=== PATIENT | male | born 1945 | race Caucasian/White ===

== ENCOUNTER 2021-07-21 13:22 | Outpatient (CLI) | payer OTHER, SELFPAY ==
[2021-07-21 14:10] LABS: Basophils # 0.1 10^3/uL (0.0-0.1); Basophils % 0.8 %; Eosinophils # 0.1 10^3/uL (0.0-0.8); Eosinophils % 1.8 %; Hemoglobin 14.5 g/dL (11.7-16.6); Lymphocytes # 2.1 10^3/uL (0.8-4.8); Lymphocytes % 30.1 %; Mean Corpuscular HGB Conc 33.7 g/dL (30.0-36.0); Mean Corpuscular Hemoglobin 30.1 pg (28.0-34.0); Mean Corpuscular Volume 89.2 fl (80-94); Mean Platelet Volume 10.8 fL (7.4-10.4); Monocytes # 0.4 10^3/uL (0.2-0.9); Monocytes % 6.2 %; Neutrophils # 4.31 10^3/uL (1.8-7.7); Neutrophils % 60.8 %; Nucleated Red Blood Cells % 0 %; Platelet Count 193 10^3/cmm (130-400); Red Blood Count 4.82 10^6/uL (4.1-5.3); Red Cell Distribution Width 12.5 % (12.1-15.1); White Blood Count 7.1 10^3/uL (4.0-10.0)
[2021-07-21 15:32] LABS: Anion Gap 14.3 (5-19); Blood Urea Nitrogen 18 mg/dL (8-23); Calcium 9.4 mg/dL (8.5-10.5); Carbon Dioxide 26 mmol/L (22-29); Chloride 99 mmol/L (98-107); Glucose 354 mg/dL (65-115); NT Pro B Type Natriuretic Pept 42 pg/mL (0-125); Osmolality Calculated 296 mOsm/kg (285-295); Potassium 4.3 mmol/L (3.5-5.1); Sodium 135 mmol/L (136-145); Thyroid Stimulating Hormone 1.58 uIU/mL (0.27-4.20)
[2021-07-22 12:53] LABS: Anti-Double Strand DNA AB 2 IU/mL; Jo-1 Antibody <1.0 NEG AI (<1.0 NEG); SM/RNP Antibodies <1.0 NEG AI (<1.0 NEG); SS-B/LA IGG <1.0 NEG AI (<1.0 NEG); Scleroderma Ab(Scl-70) Ab <1.0 NEG AI (<1.0 NEG); Ss-A/Ro Igg <1.0 NEG AI (<1.0 NEG)
[2021-07-22 14:53] LABS: Alternaria Alternata (M6) Ige <0.10 kU/L; Alternaria Class 0; Bermuda Class 0; Bermuda Grass (G2) Ige <0.10 kU/L; Cat Dander (E1) Ige <0.10 kU/L; Cat Dander Class 0; Common Ragweed (Short) (W1) Ig <0.10 kU/L; D. Farinae Class 0; Dermatophagoides Class 0; Dermatophagoides Farinae (D2) <0.10 kU/L; Dermatophagoides Pteronyssinus <0.10 kU/L; Dog Dander (E5) Ige <0.10 kU/L; Dog Dander Class 0; Elm (T8) Ige <0.10 kU/L; Elm Class 0; English Plantain (W9) Ige <0.10 kU/L; English Plantain Class 0; House Dust (Greer) (H1) Ige <0.10 kU/L; House Dust (Hollister- Stier) <0.10 kU/L; House Dust Class 0; Immunoglobulin E 75 kU/L (<OR=114); Immunoglobulin E 77 kU/L (<OR=114); Johnson Grass (G10) Ige <0.10 kU/L; Johnson Grass Cl 0; June Grass Class 0; June Grass(Kentucky Blue) (G8) <0.10 kU/L; Lamb'S Quarters (Goose Foot) <0.10 kU/L; Lamb'S Quarters Class 0; Maple (Box Elder) (T1) Ige <0.10 kU/L; Maple Class 0; Meadow Fescue (G4) Ige <0.10 kU/L; Meadow Fescue Class 0; Mucor Racemosus Class 0; Oak (T7) Ige <0.10 kU/L; Oak Class 0; Orchard Grass (Cocksfoot) (G3) <0.10 kU/L; Penicillium Class 0; Penicillium Notatum (M1) Ige <0.10 kU/L; Perennial Rye Grass (G5) Ige <0.10 kU/L; Perennial Rye Grass Class 0; Ragweeed Class 0; Rough Marsh Elder (W16) Ige <0.10 kU/L; Rough Marsh Elder Class 0; Sweet Vernal Class 0; Sweet Vernal Grass (G1) Ige <0.10 kU/L; Timothy Grass (G6) Ige <0.10 kU/L; Timothy Grass Class 0
[2021-07-23 14:43] LABS: Aspergillus Fumigatus, Igg Ab, 24.7 mg/L (<=102)
== END 2021-07-21 13:23 | disposition home or self-care (01) ==
LOC: LAB 13:27
PROVIDERS: PCP Emergency Medicine Emergency Medical Services; Referring Provider Internal Medicine Cardiovascular Disease; Visit Provider Internal Medicine Pulmonary Disease
DX: R06.00 Dyspnea, unspecified (principal); R06.02 Shortness of breath; I50.33 Acute on chronic diastolic (congestive) heart failure; J84.9 Interstitial pulmonary disease, unspecified; N18.9 Chronic kidney disease, unspecified; R07.89 Other chest pain
CPT/HCPCS: 80048; 82785; 83880; 84443; 85025; 86003; 86225; 86235

== ENCOUNTER 2021-09-07 08:19 | Outpatient (CLI) | payer OTHER, SELFPAY ==
--- NOTE | 2021-09-07 08:38 | USCV_ITS ---
Renner Galen Age: 76 Gender: M : 1945 Exam Date: 09/07/2021 09:03 Ordering Phys: Asay Terrell MD ([email or web address]) Technologist: Rafael Rivera Exam Location: [facility] Indication: dyspnea, short of breath, chest pain BP: 130 / 78 HR: 56 Rhythm: Sinus Technical Quality: Adequate MEASUREMENTS (Male / Female) Normal Values 2D ECHO LV Diastolic Diameter PLAX 3.9 cm 4.2 - 5.9 / 3.9 - 5.3 cm LV Systolic Diameter PLAX 2.5 cm IVS Diastolic Thickness 0.9 cm 0.6 - 1.0 / 0.6 - 0.9 cm IVS Systolic Thickness 1.2 cm LVPW Diastolic Thickness 1.0 cm 0.6 - 1.0 / 0.6 - 0.9 cm LVPW Systolic Thickness 1.5 cm LVOT Diameter 2.0 cm LV Ejection Fraction 2D Teich 65.9 % LV Ejection Fraction MOD 2C 69.5 % LV Ejection Fraction 2C AL 69.7 % LA Diameter 3.1 cm LA Width 3.2 cm LA Height 4.5 cm RA Width 3.4 cm RA Height 4.0 cm Aorta at Sinotubular Diameter 2.5 cm M-MODE Aortic Annulus Diameter 2.8 cm LA Ao Ratio MM 1.1 MV E Point Septal Separation 0.3 cm DOPPLER AV Peak Velocity 131.0 cm/s LVOT Peak Velocity 115.0 cm/s AV Area Cont Eq vti 2.4 cm squared AV Area Cont Eq pk 2.8 cm squared MV Area PHT 5.0 cm squared Mitral E to A Ratio 0.8 MV E' Velocity 38.5 cm/s Mitral E to MV E' Ratio 8.6 Mitral E to LV E' Lateral Ratio 8.9 Mitral E to LV E' Septal Ratio 8.3 TR Peak Velocity 294.5 cm/s TR Peak Gradient 34.7 mmHg TR Mean Velocity 226.0 cm/s TR Mean Gradient 22.9 mmHg TR Velocity Time Integral 87.6 cm RV Acceleration Time 0.1 s RV Ejection Time 0.3 s RV AcT/ET 0.3 FINDINGS Left Ventricle Normal left ventricular size, systolic function and wall thickness, with no regional wall motion abnormalities. Left ventricular ejection fraction is estimated at 70 %. Grade I diastolic dysfunction (abnormal relaxation filling pattern), normal to mildly elevated filling pressures. Right Ventricle Normal right ventricular size and systolic function. Right ventricular systolic pressure 36 mmHg. Right Atrium Normal right atrial size. Left Atrium Normal left atrial size. Mitral Valve Structurally normal mitral valve. No mitral valve stenosis. Trace mitral valve regurgitation. Aortic Valve Aortic valve not well visualized. No aortic valve stenosis. No aortic valve regurgitation. Tricuspid Valve Structurally normal tricuspid valve. Trace tricuspid valve regurgitation. Pulmonic Valve Pulmonic valve not well visualized. No pulmonary valve stenosis. No pulmonary valve regurgitation. Pericardium No pericardial effusion. Aorta Normal-sized aortic root and proximal ascending aorta. CONCLUSIONS 1. Normal left ventricular size, systolic function and wall thickness, with no regional wall motion abnormalities. Left ventricular ejection fraction is estimated at 70 %. Grade I diastolic dysfunction (abnormal relaxation filling pattern), normal to mildly elevated filling pressures. 2. Normal right ventricular size and systolic function. 3. Pulmonary artery pressure estimated at 36 mmHg. 4. No significant valvular abnormality. 5. No prior similar studies to compare. Mayte Cleary MD (Electronically Signed) Final Date: 12 September 2021 16:53 S
== END 2021-09-07 08:20 | disposition home or self-care (01) ==
PROVIDERS: PCP Emergency Medicine Emergency Medical Services; Visit Provider Internal Medicine Cardiovascular Disease
DX: R06.00 Dyspnea, unspecified (principal); R07.89 Other chest pain; R06.02 Shortness of breath
CPT/HCPCS: 93306

== ENCOUNTER 2021-10-12 12:42 | Outpatient (CLI) | payer OTHER, SELFPAY ==
--- NOTE | 2021-10-12 13:01 | CT_ITS ---
WS: [id number] CT CHEST WITHOUT INTRAVENOUS CONTRAST HISTORY: dyspnea TECHNIQUE: Contiguous 5 mm axial imaging performed on the thorax. Coronal and sagittal reformats are submitted. All CT scans at [facility] use at least one of these dose optimization techniques: automated exposure control; mA and/or kV adjustment per patient size (includes targeted exams where dose is matched to clinical indication); or iterative reconstruction. CONTRAST: None DLP: 819.80 mGy.cm COMPARISON: None available. Lungs and central airway: Mildly expanded lungs. Small micronodules are noted in the RIGHT upper lobe . There is a benign granuloma at the RIGHT lung base. Very small linear scar at the LEFT lung base. N o pneumonia. No significant bronchiectasis or bronchial wall thickening. No endobronchial lesions. Pleura: Normal. No pleural effusion. Heart and pericardium: Normal size heart with no pericardial effusion. Mediastinum and shantal: Small mediastinal and hilar lymph nodes. Healed granulomatous disease and calci fied lymph nodes at the RIGHT hilum. Vessels: Mild atherosclerosis thoracic aorta. Normal size pulmonary artery. Chest wall and lower neck: No soft tissue masses. Upper abdomen: Small hiatal hernia. Numerous low-attenuation lesions within the liver. The largest ad jacent to the falciform ligament measures 2.9 x 1.8 cm. These are probably cysts. Cannot be further e valuated without IV contrast. No adrenal mass. Spleen is top normal size at 12.6 cm. There are a few splenic granulomas. Osseous structures: No destructive process. CT/CT chest wo con [id number] IMPRESSION: 1. No pneumonia or pulmonary mass. 2. No adenopathy. 3. Splenic and hepatic granulomata. 4. Low-attenuation lesions within the liver. These are probably cysts. To conf irm hepatic cyst consider ultrasound evaluation.
== END 2021-10-12 12:43 | disposition home or self-care (01) ==
LOC: RAD 12:45
PROVIDERS: PCP Emergency Medicine Emergency Medical Services; Visit Provider Internal Medicine Pulmonary Disease
DX: R06.00 Dyspnea, unspecified (principal); K75.3 Granulomatous hepatitis, not elsewhere classified
CPT/HCPCS: 71250

== ENCOUNTER 2021-10-20 12:34 | Outpatient (CLI) | payer OTHER, SELFPAY ==
--- NOTE | 2021-10-20 13:26 | PFTS_ITS ---
Date of Study:10/20/21 Date of Dictation: MECHANICS: Forced vital capacity (FVC) is normal. Forced expiratory volume in one second (FEV1) is normal. FEV1/FVC is normal. FLOW VOLUME LOOP: No peak expiratory flow during the forced expiratory maneuver. There are clear signs of hesitation. LUNG VOLUMES: Total lung capacity (TLC) is reduced. Residual volume (RV) is reduced. DIFFUSING CAPACITY FOR CARBON MONOXIDE: Erroneously measured. INTERPRETATION: The prebronchodilator spirometry is normal. No postbronchodilator spirometry was performed. There is clear hesitation in the flow-volume loop during the peak expiratory flow maneuver. This could affect the result of the spirometry. Lung volumes are consistent with restrictive lung disease. Gas exchange (DLCO) is not being measured appropriately. MTDD
== END 2021-10-20 12:35 | disposition home or self-care (01) ==
LOC: RT 12:35
PROVIDERS: PCP Emergency Medicine Emergency Medical Services; Visit Provider Internal Medicine Pulmonary Disease
DX: R06.00 Dyspnea, unspecified (principal)
CPT/HCPCS: 94010; 94618; 94726; 94729

== ENCOUNTER → 2021-10-22 12:42 | Outpatient (BNVA) | payer OTHER, SELFPAY | PROVIDERS: PCP Emergency Medicine Emergency Medical Services; Visit Provider Internal Medicine Cardiovascular Disease | DX: R07.89 Other chest pain (principal); I10 Essential (primary) hypertension; E78.2 Mixed hyperlipidemia; E11.8 Type 2 diabetes mellitus with unspecified complications; Z79.4 Long term (current) use of insulin; G47.30 Sleep apnea, unspecified; Z87.891 Personal history of nicotine dependence | CPT/HCPCS: 99214 ==

== ENCOUNTER 2021-11-17 10:44 | Outpatient (CLI) | payer OTHER, SELFPAY ==
--- NOTE | 2021-11-17 11:00 | USCV_ITS ---
Renner Galen Age: 76 Gender: M : 1945 Exam Date: 11/17/2021 11:05 Ordering Phys: Asya Terrell MD ([email or web address]) Technologist: Will Ramos Exam Location: [facility] [place] Indication: ?aaa HISTORY: Diameter (cm) AP x Transverse x Length Velocity (cm/s) Waveform Prox Aorta: 1.90 x 2.08 x 55.30 Mid Aorta: 1.83 x 2.17 x 74.10 Distal Aorta: 1.95 x 1.97 x 64.50 Right Iliac Prox: 1.41 x 1.50 x 90.70 Left Iliac Prox: 1.16 x 1.47 x 84.50 Stent Prox Landing x x Aneurysmal Sac Max x x Lt Lat Sac Dim Rt Lat Sac Dim Stent Dist Landing x x Right Iliac Stent x x Left Iliac Stent x x Right Renal Art Left Renal Art FINDINGS: Normal abdominal aortic dimensions Slightly dilated proximal common iliac arteries bilaterally CONCLUSIONS 1. No evidence of any abdominal aortic aneurysm 2. Slightly ectatic proximal common iliac arteries 3. No evidence of stenosis in the proximal common iliac artery or in the abdominal aorta 4. The aortic and iliac artery dimensions are as mentioned above Dr Asya Terrell MD [facility] (Electronically Signed) Final Date: 17 Nov 2021 16:16 S
== END 2021-11-17 10:45 | disposition home or self-care (01) ==
LOC: RAD 10:45
PROVIDERS: PCP Emergency Medicine Emergency Medical Services; Visit Provider Internal Medicine Cardiovascular Disease
DX: R07.9 Chest pain, unspecified (principal); I71.4 Abdominal aortic aneurysm, without rupture
CPT/HCPCS: 93978

== ENCOUNTER 2021-12-02 09:54 | Outpatient (CLI) | payer OTHER, SELFPAY ==
[2021-12-02 10:22] VITALS: BMI 32.8
--- NOTE | 2021-12-02 10:22 | ECG_ITS ---
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 Interpretive Statements NAME OF STUDY: LEXISCAN SESTAMIBI STRESS TEST INDICATION: Chest Pain, PROCEDURE: At the baseline, the EKG revealed normal sinus rhythm with some nonspecific T wave changes. The baseline blood pressure was 136/78 mm Hg with a heart rate of 63 beats/min. Lexiscan was infused over a period of 20 seconds. A total of 0.4 milligrams of Lexiscan was infused. The stress phase was continued for a total of 5 minutes. Heart rate at the end of the stress phase was 92 with a blood pressure 155/71. The EKG at the peak infusion revealed no significant changes. Sestamibi was injected 20 seconds after the Lexiscan infusion. Blood pressure at the end of the recovery phase was 155/71 with a heart rate of 82 per minute. CONCLUSION: 1. No significant EKG changes with the LexiScan infusion 2. No LexiScan induced chest pain or cardiac arrhythmia 3. Normal blood pressure and heart rate response 4. Sestamibi/sestamibi perfusion scan pending; see separate report. Electronically Signed On 12-04-2021 22:57:03 CDT by Asya Terrell M.D. [id number]
--- NOTE | 2021-12-02 10:23 | NMCV_ITS ---
NM leia perf SPECT r/s* [id number] Galen Renner Age: 76 Gender: M : 1945 Exam Date: 12/02/2021 10:58 Ordering Phys: Asya Terrell MD ([email or web address]) Technologist: ARBEN Glez Exam Location: [facility] Indications: SHORTNESS OF BREATH STRESS TEST Please see separate stress test report in [facility] for full findings IMAGE PROTOCOL Rest/Stress 1 Lexiscan Day Radiopharmaceutical Dose (mCi) Administration Site Administered by Rest: Tc-99m 11.0 IV ARBEN Glez Sestamibi Stress:Tc-99m 32.4 IV ARBEN Rich Sestamibi Rest: 02-Dec-2021 60 Discovery 630 Stress: 02-Dec-2021 30 Discovery 630 0.4mg Lexiscan. Images obtained in supine and prone position. SPECT RESULTS Technical Quality: Excellent Raw Data Analysis: Normal Image Corrections: No attenuation or motion correction applied Summed Stress Score: 4 Summed Rest Score: 0 Summed Difference Score: 4 PERFUSION FINDINGS A small area of slightly decreased tracer uptake was noted in the apical lateral, mid inferolateral and mid anterolateral regions. Significant reversibility was noted in the supine position. However with the prone imaging, no significant perfusion abnormalities are noted FUNCTIONAL RESULTS (calculated via Gated SPECT) Stress Image LV EF (%): 73 Stress EDV (mL):62 TID: 1 Stress ESV (mL):17 FUNCTIONAL FINDINGS: Segmental wall motion analysis revealing no gross wall motion normalities. IMPRESSIONS 1. Myocardial perfusion imaging revealing a small area of reversible defect in the apical lateral, mid inferolateral and anterolateral regions suggesting ischemia in the distribution of the left circumflex artery. However because the inconsistency, the reliability of this finding is questionable. 2. Normal LV ejection fraction 73%. 3. LV wall motion analysis revealing no gross wall motion abnormalities. 4. Normal LV volume. Low probability for coronary ischemia, based on the above findings Dr Asya Terrell MD [facility] (Electronically Signed) Final Date: 02 Dec 2021 14:40 S
[2021-12-02] MEDS: regadenoson 0.4 Mg/5 ml Syringe IVP (11:35)
[2021-12-02 11:36] VITALS: BP 156/74; PULSE 91
== END 2021-12-02 09:55 | disposition home or self-care (01) ==
LOC: CDL 09:55
PROVIDERS: PCP Emergency Medicine Emergency Medical Services; Visit Provider Internal Medicine Cardiovascular Disease
DX: I71.4 Abdominal aortic aneurysm, without rupture (principal); R06.02 Shortness of breath; R07.9 Chest pain, unspecified
CPT/HCPCS: 78452; 93017; A9500; J2785

== ENCOUNTER 2021-12-03 13:01 | Outpatient (CLI) | payer OTHER, SELFPAY ==
--- NOTE | 2021-12-03 13:13 | USCV_ITS ---
Galen Renner Age: 76 Gender: M : 1945 Exam Date: 12/03/2021 13:21 Ordering Phys: Asya Terrell MD ([email or web address]) Technologist: Exam Location: [facility] [place] Indication: dyspnea BP: 150 / 90 HR: 70 Rhythm: Sinus Technical Quality: Adequate MEASUREMENTS (Male / Female) Normal Values 2D ECHO LV Diastolic Diameter PLAX 3.3 cm 4.2 - 5.9 / 3.9 - 5.3 cm LV Systolic Diameter PLAX 2.4 cm IVS Diastolic Thickness 1.0 cm 0.6 - 1.0 / 0.6 - 0.9 cm IVS Systolic Thickness 1.4 cm LVPW Diastolic Thickness 1.1 cm 0.6 - 1.0 / 0.6 - 0.9 cm LVPW Systolic Thickness 1.5 cm LVOT Diameter 2.0 cm LV Ejection Fraction 2D Teich 45.5 % LV Ejection Fraction MOD 2C 65.6 % LV Ejection Fraction 2C AL 65.7 % LA Diameter 3.2 cm Aorta at Sinotubular Diameter 2.8 cm IVC Diameter 1.6 cm M-MODE Aortic Annulus Diameter 3.1 cm LA Ao Ratio MM 0.9 MV E Point Septal Separation 0.8 cm DOPPLER AV Peak Velocity 147.0 cm/s LVOT Peak Velocity 98.0 cm/s AV Area Cont Eq vti 2.9 cm squared AV Area Cont Eq pk 2.1 cm squared MV Area PHT 5.0 cm squared Mitral E to A Ratio 0.7 MV E' Velocity 39.5 cm/s Mitral E to MV E' Ratio 6.9 Mitral E to LV E' Lateral Ratio 5.8 Mitral E to LV E' Septal Ratio 8.6 TR Peak Velocity 257.0 cm/s TR Peak Gradient 26.4 mmHg TV Peak E Velocity 87.0 cm/s Right Atrial Pressure 3.0 mmHg Pulmonary Artery Systolic Pressu 29.4 mmHg PV Peak Velocity 101.0 cm/s FINDINGS Left Ventricle Normal left ventricular size and systolic function, EF 63 %. No regional wall motion abnormalities. Mild left ventricular hypertrophy. Grade I/IV diastolic dysfunction (abnormal relaxation filling pattern), normal to mildly elevated filling pressures. Right Ventricle The right ventricle is normal in size and function. Right Atrium The right atrium is normal in size. Left Atrium The left atrium is normal in size. Mitral Valve Thickened mitral valve. Aortic Valve Thickened aortic valve. Tricuspid Valve Mild tricuspid valve regurgitation. Pulmonic Valve Trace pulmonary valve regurgitation. Pericardium No pericardial effusion. Aorta Normal ascending aorta dimension. IVC The inferior vena cava pulmonary and hepatic veins appear normal. CONCLUSIONS Normal left ventricular size and systolic function, EF 63 %. No regional wall motion abnormalities. Mild left ventricular hypertrophy. Grade I/IV diastolic dysfunction (abnormal relaxation filling pattern), normal to mildly elevated filling pressures. Thickened aortic and mitral valves .Mild tricuspid valve regurgitation. Trace pulmonary valve regurgitation. Estimated pulmonary artery peak systolic pressure was 29 mmHg There is no pericardial effusion. There are no intracardiac masses. Dr Asya Terrell MD [facility] (Electronically Signed) Final Date: 04 Dec 2021 16:40 S
== END 2021-12-03 13:02 | disposition home or self-care (01) ==
LOC: RAD 13:02
PROVIDERS: PCP Emergency Medicine Emergency Medical Services; Visit Provider Internal Medicine Cardiovascular Disease
DX: R06.02 Shortness of breath (principal); I07.1 Rheumatic tricuspid insufficiency; I51.7 Cardiomegaly
CPT/HCPCS: 93306

== ENCOUNTER → 2022-04-22 13:47 | Outpatient (BNVA) | payer OTHER, SELFPAY | PROVIDERS: PCP Emergency Medicine Emergency Medical Services; Visit Provider Internal Medicine Cardiovascular Disease | DX: R07.89 Other chest pain (principal); R00.2 Palpitations; R94.39 Abnormal result of other cardiovascular function study; G47.39 Other sleep apnea; E78.2 Mixed hyperlipidemia; I10 Essential (primary) hypertension; E11.9 Type 2 diabetes mellitus without complications; Z79.4 Long term (current) use of insulin; Z87.891 Personal history of nicotine dependence | CPT/HCPCS: 99214 ==

== ENCOUNTER → 2022-08-26 14:52 | Outpatient (BNVA) | payer OTHER, SELFPAY | PROVIDERS: PCP Emergency Medicine Emergency Medical Services; Visit Provider Internal Medicine Cardiovascular Disease | DX: R94.39 Abnormal result of other cardiovascular function study (principal); E78.2 Mixed hyperlipidemia; G47.39 Other sleep apnea; I10 Essential (primary) hypertension; I49.9 Cardiac arrhythmia, unspecified; E11.9 Type 2 diabetes mellitus without complications; Z79.4 Long term (current) use of insulin; Z87.891 Personal history of nicotine dependence | CPT/HCPCS: 99214 ==

== ENCOUNTER 2022-09-03 05:52 | Outpatient (CLI) | payer OTHER, SELFPAY ==
[2022-09-03] VITALS (57 sets, daily range): BP systolic 105–155; BP diastolic 58–80; PULSE 49–71; RESP 5–25; TEMP 36.6–36.7; O2SAT 94–98; BMI 32.2
--- NOTE | 2022-09-03 06:00 | XACV_ITS ---
Ht: 173 cm Wt: 96 kg BSA: 2.18 m2 Gender: Male : 1945 Any Known Allergies: Other Exam Priority: Routine Indication(s): - Abnormal nuclear perfusion study Procedure(s): Procedure Description: Diagnostic procedure Procedure Description: Left Heart Catheterization Procedure Description: Aortic Arch Angiography Procedure Description: Coronary Angiography Xander SYKES; Diagnostic Cath Status: Elective Diagnostic Findings * The left main is a medium caliber vessel with mild diffuse ectasia and some intimal irregularities. * The left anterior descending artery is a medium caliber vessel which appears to wrap around the LV apex. The proximal and part of the mid LAD was found to have mild diffuse ectasia and intimal irregularities. No significant stenotic lesions were noted. The diagonal branches also were found to have a minimal intimal irregularities.. * The circumflex artery is a medium caliber nondominant vessel which appears to give off a high obtuse marginal branch. These vessels are found to have minimal intimal irregularities with no significant stenotic lesions.. * The right coronary artery has a posterolateral takeoff. It is a medium caliber dominant vessel which was found to have minimal intimal irregularities diffusely. No significant stenotic lesions were noted. * No disease noted in the Left Main, Left Anterior Descending, Right, or Circumflex coronary arteries. * Coronary angiography shows right dominance. Conclusions 1. 77-year-old white male with a history of hypertension, dyslipidemia, type 2 diabetes, cardiac arrhythmia and chest pain. Myocardial perfusion imaging revealed areas of fixed defect with a small areas of reversible defects, suggesting myocardial scarring with a possible small areas of james-infarction ischemia. It was opted to treat him medically in the beginning. But because of the worsening of his symptoms, in order to further evaluate his coronary status, a cardiac catheterization was recommended. 2. Patient underwent left heart catheterization with left and right coronary angiogram and an aortogram today. The findings are as follows. 3. 1. Mild diffuse intimal irregularities in the coronary arteries. 2. Mild diffuse ectasia of the proximal and mid LAD. 3. Features of left-ventricular diastolic dysfunction. 4. Tortuous thoracic aorta. Right coronary artery has a posterolateral takeoff. 4. No disease noted in the Left Main, Left Anterior Descending, Right, or Circumflex coronary arteries. Recommendations * Continue current medical management and risk factor modification. Diagnostic RX Recommendation: medical therapy and/or counseling LV EDP: 22 mmHg Left Ventriculography Findings: * LV gram was not performed because of the concern of the dye overload. The LVEDP was 22 mmHg. * An aortogram was performed since we could not locate the right coronary artery. The aortogram showed a tortuous thoracic aorta. The right coronary artery was found to have a posterior and lateral takeoff.. Pressures Phase:Rest AO : 113 / 62 ( 82 ) @ 7:52:00 AM 112 / 62 ( 81 ) @ 7:52:00 AM 114 / 70 ( 91 ) @ 8:03:00 AM 2 / -3 ( -1 ) @ 8:13:00 AM LV : 121 / / 22 @ 7:52:00 AM 119 / 1 / 22 @ 7:52:00 AM Valves Phase:DefaultPhase AV : 0.0 @ 8:25:31 AM AV Mean Gradient: 0.0 @ 8:25:31 AM Clinical Evaluation EBL: 5mL-10mL Procedural Details Pre-Procedure Time Out. Identified patient by full name and date of as verbalized by the patient/guarantor. Does the consent match the physician's order: Yes. Accurate & Complete Informed Consent: Yes. Inpatient/Outpatient History & Physical on Chart: Yes. If H&P is completed, is and addenduem needed: No; If yes, is the addendum complete: N/A. Visualize and Verify Site with Patient/Guarantor: N/A. Relevant Radiology Images available: N/A. Pre-op teaching completed and patient verbalized understanding. The risks, benefits, and alternatives of sedation and/or procedure were discussed by physician. The patient agrees to continue. Procedure started. [facility] Clinical Fraility Score: 3: Managing Well. 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 Chest Pain Symptom Assessment: Typical Angina Symptoms. Cardiovascular Instability: No, stable. Correct patient, site and procedure confirmed by cath team. Current diagnosis: Chest Pain, CAD, ABNORMAL STRESS TEST. PERRLA. Strong, equal hand automotive diagnostic technician bilaterally. Lungs clear x 5 lobes. IV Site on Arrival: 20 gauge in the right anticubital. IV Fluids: 0.9% NaCl at KVO. 500 mL infused prior to laundry laborer. Pre Procedural Pulses: bilateral radial was 3+. Pre Procedural Pulses: bilateral posterior tibial was 3+. Pre Procedural Pulses: bilateral dorsalis pedis was 3+. Oxygen started at 3liters/min via nasal canula. right groin was prepped with chloroprep then draped in the usual sterile fashion. right radial was prepped with chloroprep then draped in the usual sterile fashion. Physician notified. Baseline sample Acquired. HR: 54 BPM. Family updated by md prior to the start of the procedure. Equipment: 5F - Radial. Cardiac Cath Pack. ACIST Manifold Kit Model BT 2000. Heparinized Saline (2 units/mL), 1000 mL bag. Equipment: 6F - Radial. Equipment: 5F - Femoral. Equipment: 6F - Femoral. Physician arrived. Physician scrubbed in. 500 ml bolus given in CPRU prior to procedure. Immediate Pre-Procedure Time Out. Correct Patient: Yes; Correct Procedure: Yes; Correct Site: Yes; Correct Patient Position: Yes; Correct Supplies: Yes; Dried Flammable Prep: No; Blood Products Available: N/A;. Lidocaine 1% infiltrated to the right radial. Admit Source: Out Patient. Current Diagnosis : Chest Pain. Arterial access obtained. A 5 st helenian Gabriele catheter in over wire. EDP Sample taken: LV 121/1,22; HR: 52 BPM; SpO2: 95%. Pullback taken: LV 119/1,22; AO 113/62(82); Mean: 0mmHg, Peak to Peak: 0mmHg, SEP: 12sec/min; HR: 54 BPM; SpO2: 94%. Catheter removed over the exchange wire. A 5 st helenian TIG catheter in over wire. Multiple views taken of left coronary artery. Catheter redirected to the RCA. Unable to cannulate the rca. Catheter removed over the exchange wire. A CRD 5F JR4 Diagnostic Catheter was advanced over the wire and used for Right coronary angiography. Catheter removed over the exchange wire. A [address] st helenian Angled Pig catheter in over wire. Aortogram performed in KOREAN @ 15 mL/second for a total of 30 mL. Aortic Root Visualized. Catheter removed over the exchange wire. A 5 st helenian 3DRC catheter in over wire. Multiple views taken of right coronary artery. Catheter removed over the exchange wire. Physician review of films. Physician scrubbed out. Post-op diagnosis: MILD CAD. Complications: None. A TR Band was successful obtaining hemostatsis at the Right Radial artery insertion site. TR band placed. Hemostasis obtained. Post Procedure: Pulses reassessed and unchanged. PERRLA. Strong, equal hand automotive diagnostic technician bilaterally. No VTE prophylaxis required. Medication waste: Lido- 2 ml, Versed- 1 mg, Fentanyl- 50 mcg, Heparin-1000 units, Nitro- 49.8 mg. Total IV fluids: 187 mL. Fluoro: 13:01. Contrast type used: Omnipaque 300 mg/mL, 150 mL bottle. [id number]. Estimated blood loss: 5mL-10mL. Responsiveness - Normal response to verbal stimuli; alert and oriented, PERRLA. Airway - Unaffected, no intervention required; spontaneous ventilation. Circulation: W/N/L, pulses unchanged. Nausea/Vomiting: No. Procedure completed. Patient transferred by wheelchair to 1st floor. Vital chart was stopped. Access Site Site: Right Radial artery Sheath Size: 6 Fr Hemostasis Method: TR Band Hemostasis Success: Successful Procedure Medications Start: 7:43 AM Stop: 7:43 AM Medication: Versed Amount: 1 mg Route: I.V. Start: 7:44 AM Stop: 7:44 AM Medication: Fentanyl Amount: 50 mcg Route: I.V. Start: 7:50 AM Stop: 7:50 AM Medication: Nitrogylcerin Amount: 200 mcg Route: I.A. Start: 7:50 AM Stop: 7:50 AM Medication: Verapamil Amount: 5 mg Route: I.A. Start: 7:55 AM Stop: 7:55 AM Medication: Heparin Amount: 5000 units Route: I.V. I, the attending physician, have reviewed and verified all procedure medications. Yes, all medications given per verbal order History/Risk Factors Hypertension: Yes Dyslipidemia: Yes Peripheral Arterial Disease (PAD): No Myocardial Infarction (AZ): No Obesity: No Renal Disease: No Tobacco Use: Former Prior Interventions PCI: No CABG: No Valve Surgery: No Report Signatures Finalized by Dr Asya Terrell MD [facility] on 09/03/2022 11:57 AM
[2022-09-03 06:30] LABS: Basophils % 0.8 %; Eosinophils # 0.1 10^3/uL (0.0-0.8); Eosinophils % 2.5 %; Hematocrit 40.7 % (42.0-52.0); Hemoglobin 13.6 g/dL (11.7-16.6); Lymphocytes % 37.3 %; Mean Corpuscular HGB Conc 33.4 g/dL (30.0-36.0); Mean Corpuscular Hemoglobin 29.9 pg (28.0-34.0); Mean Corpuscular Volume 89.5 fl (80-94); Monocytes # 0.5 10^3/uL (0.2-0.9); Monocytes % 8.7 %; Neutrophils # 2.66 10^3/uL (1.8-7.7); Neutrophils % 50.5 %; Nucleated Red Blood Cells % 0 %; Platelet Count 147 10^3/cmm (130-400); Red Blood Count 4.55 10^6/uL (4.1-5.3); Red Cell Distribution Width 13.2 % (12.1-15.1); White Blood Count 5.3 10^3/uL (4.0-10.0)
[2022-09-03] MEDS: diphenhydrAMINE 50 mg Capsule PO (06:30)
[2022-09-03] MEDS: aspirin 325 mg Tablet PO (06:30)
[2022-09-03 06:47] LABS: Anion Gap 14.1 (5-19); Blood Urea Nitrogen 20 mg/dL (8-23); Carbon Dioxide 24 mmol/L (22-29); Chloride 106 mmol/L (98-107); Glucose 105 mg/dL (65-115); Osmolality Calculated 293 mOsm/kg (285-295); Potassium 4.1 mmol/L (3.5-5.1); Sodium 140 mmol/L (136-145)
--- NOTE | 2022-09-03 07:00 | SUR.PREOP ---
Dr. Terrell called with this AMs labwork. Creatinine was 1.4. Orders received for a 500ml NS bolus.
--- NOTE | 2022-09-03 07:05 | SUR.PREOP ---
500 mL NS bolus started in CPRU and will complete in the cath lab manager.
--- NOTE | 2022-09-03 07:39 | W.PM.OPSUD ---
Surgery/Procedure H&P Update DATE OF PROCEDURE: September 03, 2022 DATE H&P PERFORMED: 08/26/22 H&P UPDATE INFORMATION: I have reviewed H&P completed within last 30 days, I have examined patient prior to procedure and No changes to prior documentation PREOP DIAGNOSIS: ASHD PRIMARY INDICATION FOR PROCEDURE: CP/Abnoarmal MPI/ multiple risk factors for CAD PLANNED PROCEDURE: Operation Date: 09/03/22 08:30 Proposed Procedures p [facility] [id number],R94.39(Left) - Asya Terrell MD PATIENT REASSESSED PRIOR TO SEDATION, WITH NO CHANGE NOTED: Yes PHYSICAL EXAM: alert, oriented x 3, clear to auscultation bilaterally and regular rate & rhythm AIRWAY EVAL/ANESTHESIA PLAN: normal airway, see other exam findings, ASA II, Monitored Anesthesia, Local Anesthesia, Risks, benefits & alternatives of sedation and/or procedure discussed and Patient agrees to continue as planned
[2022-09-03] MEDS: losartan 50 mg Tablet 100 MG PO (09:39)
[2022-09-03] MEDS: metoprolol succinate ER (24 HR) 100 mg Tablet PO (09:40)
[2022-09-03] MEDS: atorvastatin 40 mg Tablet 20 MG PO (09:40)
[2022-09-03] MEDS: pantoprazole DR 40 mg Tablet PO (09:41)
[2022-09-03] MEDS: amlodipine 5 mg Tablet 2.5 MG PO (09:41)
[2022-09-03] MEDS: isosorbide mononitrate ER 30 mg Tablet PO (09:42)
[2022-09-03] MEDS: magnesium lactate 84 mg Tablet PO (09:42)
== END 2022-09-03 14:07 | disposition home or self-care (01) ==
LOC: CCL 05:53 → CSU 08:42
PROVIDERS: PCP Emergency Medicine Emergency Medical Services; Visit Provider Internal Medicine Cardiovascular Disease
DX: I25.10 Atherosclerotic heart disease of native coronary artery without angina pectoris (principal); I10 Essential (primary) hypertension; E78.5 Hyperlipidemia, unspecified; E11.9 Type 2 diabetes mellitus without complications; Z87.891 Personal history of nicotine dependence; Z79.4 Long term (current) use of insulin; G47.30 Sleep apnea, unspecified
CPT/HCPCS: 36415; 80048; 85025; 93458; 96361; 96365; 99152; 99153; C1769; C1887; C1894; G0378; J1644; J2250; J3010; J3490; J7030; Q0163; Q9967

== ENCOUNTER → 2022-09-14 09:32 | Outpatient (BNVA) | payer OTHER, SELFPAY | PROVIDERS: PCP Emergency Medicine Emergency Medical Services; Visit Provider Nurse Practitioner Family | DX: R07.89 Other chest pain (principal); I10 Essential (primary) hypertension; Z87.891 Personal history of nicotine dependence | CPT/HCPCS: 99214 ==

== ENCOUNTER → 2023-02-28 15:21 | Outpatient (BNVA) | payer OTHER, SELFPAY | PROVIDERS: PCP Emergency Medicine Emergency Medical Services; Visit Provider Internal Medicine Cardiovascular Disease | DX: R06.02 Shortness of breath (principal); G47.39 Other sleep apnea; Z99.89 Dependence on other enabling machines and devices; I10 Essential (primary) hypertension; E78.2 Mixed hyperlipidemia; I49.9 Cardiac arrhythmia, unspecified; R07.89 Other chest pain; E11.9 Type 2 diabetes mellitus without complications; Z79.4 Long term (current) use of insulin; Z87.891 Personal history of nicotine dependence | CPT/HCPCS: 36415; 80048; 83880; 99214 ==